=== PATIENT | male | born 1965 | race Caucasian/White ===

== ENCOUNTER 2016-12-21 10:12 | Emergency (ER) | payer OTHER ==
[2016-12-21 10:35] LABS: BASOPHILS 0.6 %; BASOPHILS ABSOLUTE 0.05 10/3/uL (0.0-0.16); EOSINOPHILS 0.9 %; EOSINOPHILS ABSOLUTE 0.08 10/3/uL (0.0-0.53); ER CBC TAT 0 Hrs 05 Mins; HEMATOCRIT 43.8 % (40.0-51.0); HEMOGLOBIN 15.4 g/dL (13.6-17.8); IMMATURE GRANULOCYTES 0.3 %; IMMATURE GRANULOCYTES ABSOLUTE 0.03 10/3/uL (0.0-0.11); LYMPHOCYTES 16.7 %; LYMPHOCYTES ABSOLUTE 1.47 10/3/uL (0.67-4.30); MEAN CORPUS HGB CONC 35.2 g/dL (32.0-36.0); MEAN CORPUSCULAR HEMOGLOB 30.6 pg (26.0-34.0); MEAN CORPUSCULAR VOLUME 87.1 fL (80-100); MEAN PLATELET VOLUME 10.6 fL (9.2-13.0); MONOCYTES ABSOLUTE 0.44 10/3/uL (0.21-1.20); NEUTROPHILS 76.5 %; NEUTROPHILS ABSOLUTE 6.75 10/3/uL (2.02-8.40); PLATELET COUNT 228 10/3/uL (150-400); RED CELL COUNT 5.03 10/6/uL (4.7-6.1); WHITE BLOOD CELLS 8.8 10/3/uL (4.5-10.5)
[2016-12-21 10:36] LABS: MANUAL DIFF NO %
[2016-12-21 10:50] LABS: A/G RATIO 1.3 (0.7-1.9); ALBUMIN 4.3 G/DL (3.5-5.0); ALKALINE PHOSPHATASE 71 U/L (45-117); BUN (BLOOD UREA NITROGEN) 21 MG/DL (6-23); CALCIUM, SERUM 9.3 MG/DL (8.5-10.4); CHLORIDE, SERUM 106 MMOL/L (96-112); CO2 (CARBON DIOXIDE) 27 MMOL/L (24-34); CREATININE 1.17 MG/DL (0.70-1.30); GFR AFRICAN AMERICAN 83 ML/MIN (>=60); GFR NON AFRICAN AMERICAN 71 ML/MIN (>=60); GLOBULIN 3.4 G/DL (2.5-4.1); GLUCOSE, SERUM 144 MG/DL (60-99); SGOT(AST) 15 U/L (5-40); SGPT(ALT) 46 U/L (5-65); SODIUM, SERUM 143 MMOL/L (135-148); TOTAL PROTEIN 7.7 G/DL (6.0-8.5)
[2016-12-21 11:59] LABS: ASCORBIC ACID (UR NOT ORDER) 20 (NEG); BILIRUBIN, URINE NEGATIVE (NEG); ER URINALYSIS TAT 0 Hrs 13 Mins; KETONE, URINE NEGATIVE (NEG); LEUKOCYTE ESTERASE(NOT OR NEG (NEG); NITRITE (URINE) NEG (NEG); WBC (NOT ORDERED) (RFLEX) 3 (0-5)
[2016-12-29] MEDS ORDERED: ASAB PO (11:05)
[2016-12-29] MEDS ORDERED: LIPITOR40 PO (11:05)
[2016-12-29] MEDS ORDERED: NORCO1 TA1 PO (11:14)
[2016-12-29] MEDS ORDERED: PERCOCET 7.5/321 TAB PO (11:15)
== END 2016-12-21 13:25 | disposition home or self-care (01) ==
LOC: ER 10:12
PROVIDERS: Emergency Medicine
DX: N13.2 Hydronephrosis with renal and ureteral calculous obstruction (principal); Z87.442 Personal history of urinary calculi
CPT/HCPCS: 74176; 80053; 81001; 85025; 96374; 96375; 96376; 99284; J1170; J1885; J2405